=== PATIENT | female | born 1950 | race African-American/Black ===

== ENCOUNTER → 2023-11-20 12:34 | Outpatient (REF) | payer MEDICARE, SELFPAY | LOC: WDC 12:34 | PROVIDERS: ATTENDING PHYSICIAN Obstetrics & Gynecology; FAMILY PHYSICIAN Family Medicine | DX: R92.2 Inconclusive mammogram (principal); R92.333 Mammographic heterogeneous density, bilateral breasts; Z80.3 Family history of malignant neoplasm of breast | CPT/HCPCS: 76641 ==

== ENCOUNTER 2024-03-25 06:15 | Day surgery (SDC) | payer MEDICARE, SELFPAY ==
--- NOTE | 2024-03-25 11:34 | HP.FOC2 ---
Focused History & Physical
Chief Complaint
HPI:
Chief Complaint: Lipoma
HPI / Indication for Planned Procedure: Patient is a 73-year-old female with longstanding history of a visible lump along her right costal margin/right upper quadrant the abdomen. Has been present for numerous years slowly increasing in size. She
had an outpatient ultrasound identifying an echogenic lesion measuring 6.1 x 1.7 x 5.8 cm most suggestive of a lipomatous mass within the subcutaneous tissues. This was consistent with office evaluation and examination. She presents today for
scheduled surgical excision.
Relevant Past Medical History: Other (Mitral valve prolapse, paroxysmal atrial tachycardia, rheumatoid arthritis)
Relevant Social History: Negative
Relevant Family History: Negative
Relevant Past Surgical History: Positive for ([place] tooth extraction)
Review of Systems
Review of Pertinent Systems: All Systems Negative
Medication
See Medication form for detailed medications: Yes
Medication List (including Herbals & OTC):
chlorthalidone 25 mg tablet 25 mg PO Q48H 06/23/19
metoprolol succinate 50 mg tablet,extended release 24 hr 50 mg PO DAILY 06/23/19
5-hydroxytryptophan (5-HTP) 100 mg capsule (5-HTP) 1,000 mg PO HS 03/22/24
Caditone 1 tab PO DAILY 03/22/24
Diaxinol 2 cap PO DAILY 03/22/24
Homocysteine Formula 2 cap PO DAILY 03/22/24
Joint Guard 2 tab PO DAILY 03/22/24
Lactobacillus rhamnosus GG 15 billion cell sprinkle capsule (Culturelle) 1 cap PO DAILY 03/22/24
Magnesium [place] 250 mg PO DAILY 03/22/24
Meriva 2 cap PO DAILY 03/22/24
Mitocore 2 tab PO DAILY 03/22/24
Pain Guard Forte 1 tab PO PRN PRN pain 03/22/24
Pro [place] Dha 450 mg PO DAILY 03/22/24
Pro [place] Epa 650 mg PO DAILY 03/22/24
Vitalzym-Xe 3 cap PO DAILY 03/22/24
Wobenzym 6 tab PO PRN PRN joint pain 03/22/24
apixaban 5 mg tablet (Eliquis) 5 mg PO BID 03/22/24
metoprolol succinate 25 mg tablet,extended release 24 hr 25 mg PO HS 03/22/24
naltrexone 1.5 mg capsule 3 mg PO HS 03/22/24
niacin 1 tab PO BID 03/22/24
potassium chloride 20 mEq tablet,extended release(part/cryst) (Klor-Con M) 20 meq PO BID 03/22/24
vitamin D3-vitamin K2 2 - 3 drp PO DAILY 03/22/24
Medications Reviewed: Yes
Allergies and Reactions
Patient has Allergies: Yes
Noted Allergies and Reactions:
Allergy/AdvReac Type Severity Reaction Status Date / Time
amoxicillin Allergy Mild Oral ulcers Verified 03/22/24 16:01
Penicillins Allergy Mild Oral ulcers Verified 03/22/24 16:01
sulfur Allergy infection Uncoded 03/22/24 16:01
Pertinent Physical Exam
All Other Systems: Negative
Head/Neck: Normal
Lungs: Normal
Heart: Normal
Abdomen: Other (Right upper quadrant soft, mobile subcutaneous lipomatous mass approximately 6 cm in diameter)
Extremities: Normal
Neurological: Normal
Diagnosis / Assessment
73-year-old female presenting for excision of subcutaneous abdominal lipoma
Plan / Procedure
Excision of right upper quadrant lipoma
Anesthesia/Sedation to be done by Anesthesia Provider: Yes
[2024-03-25 11:54] VITALS: BMI 17.1
[2024-03-25 11:56] VITALS: BP 188/72; BMI 17.1
[2024-03-25] MEDS: TYLENOL 1000 MG PO (12:01)
[2024-03-25] MEDS: NORMOSOL-R 1000 IV (12:16)
[2024-03-25] MEDS: VANCOCIN 200 IV (12:22)
--- NOTE | 2024-03-25 13:05 | W.SUR.PREOP ---
Pre-Operative Surgical Note
-
I have examined this patient prior to the performance of the scheduled procedure.
The patient's condition is unchanged from the time of the current History and
Physical and the patient is able to undergo the scheduled procedure.
[2024-03-25 14:16] VITALS: BP 177/72
--- NOTE | 2024-03-25 14:29 | W.IMMPOSTOP ---
Addendum entered and electronically signed by Damian Haider MD 03/25/24 14:36:
#[id number]
Original Note:
Surgical Immed Post Op Note
-
Primary Surgeon: Vitaly
Assisting Surgeon: Pedro Fitzpatrick
Pre-op Diagnosis: Right upper quadrant subcutaneous lipoma
Post-op Diagnosis: Right upper quadrant subcutaneous lipoma; 6 cm
Procedure Performed: Excision right upper quadrant subcutaneous lipoma
Anesthesia Type: MAC +1% lidocaine with epinephrine
Specimen / Cultures: Lipomatous mass
Estimated Blood Loss: 4 mL
Complications: None immediate
Operative Findings: Well encapsulated, slightly lobulated large lipomatous mass within the subcutaneous tissues. Excised in its entirety. Closure of Ernesto's layer with a few interrupted 3-0 Vicryl. Skin closure with 4-0 Monocryl subcuticular and
Steri-Strip applied followed by gauze pressure dressing.
== END 2024-03-25 15:05 | disposition home or self-care (01) ==
LOC: SDS 06:15
PROVIDERS: ATTENDING PHYSICIAN Surgery
DX: D17.1 Benign lipomatous neoplasm of skin and subcutaneous tissue of trunk (principal)
CPT/HCPCS: 22903; 88304

== ENCOUNTER → 2024-10-24 13:22 | Outpatient (REF) | payer MEDICARE, SELFPAY | LOC: WDC 13:22 | PROVIDERS: ATTENDING PHYSICIAN Obstetrics & Gynecology; FAMILY PHYSICIAN Family Medicine | DX: Z12.31 Encounter for screening mammogram for malignant neoplasm of breast (principal); Z80.3 Family history of malignant neoplasm of breast | CPT/HCPCS: 77063; 77067 ==

== ENCOUNTER → 2024-11-23 12:39 | Outpatient (REF) | payer MEDICARE, SELFPAY | LOC: WDC 12:39 | PROVIDERS: ATTENDING PHYSICIAN Obstetrics & Gynecology; FAMILY PHYSICIAN Family Medicine | DX: R92.2 Inconclusive mammogram (principal) | CPT/HCPCS: 76641 ==

== ENCOUNTER → 2024-12-16 13:11 | Outpatient (REF) | payer MEDICARE, SELFPAY | LOC: RAD 13:11 | PROVIDERS: ATTENDING PHYSICIAN Internal Medicine Rheumatology; FAMILY PHYSICIAN Family Medicine | DX: R74.8 Abnormal levels of other serum enzymes (principal) | CPT/HCPCS: 76700 ==

== ENCOUNTER → 2025-05-12 10:46 | Outpatient (REF) | payer MEDICARE, SELFPAY | LOC: RAD 10:46 | PROVIDERS: ATTENDING PHYSICIAN Family Medicine | DX: R31.9 Hematuria, unspecified (principal) | CPT/HCPCS: 76770 ==

== ENCOUNTER → 2025-05-25 13:40 | Outpatient (REF) | payer MEDICARE, SELFPAY | LOC: RAD 13:40 | PROVIDERS: ATTENDING PHYSICIAN Obstetrics & Gynecology; FAMILY PHYSICIAN Family Medicine | DX: N95.0 Postmenopausal bleeding (principal) | CPT/HCPCS: 76856 ==